=== PATIENT | male | born 1995 | race Caucasian/White ===

== ENCOUNTER 2020-07-07 16:53 | Inpatient (IN) | payer OTHER ==
[2020-07-07 19:54] VITALS: BMI 26.9
[2020-07-07] MEDS ORDERED: METHOCARBAMOL 500 MG TABLET PO PRN (20:14)
[2020-07-07] MEDS ORDERED: BISMUTH SUBSALICYLATE 524 MG/30 ML UD PO PRN (20:14)
[2020-07-07] MEDS ORDERED: ACETAMINOPHEN 325 MG TABLET (FP) PO PRN ×2 (20:14)
[2020-07-07] MEDS ORDERED: MENTHOL/PHENOL 1 EACH UD MM PRN (20:14)
[2020-07-07] MEDS ORDERED: MAGNESIUM HYDROX 2400MG/30ML ORAL SUSPENSION 30 ML CUP PO PRN (20:14)
[2020-07-07] MEDS ORDERED: MAG HYDROX/AL HYDROX/SIMETH 30 ML UNIT-DOSE CUP PO PRN (20:14)
[2020-07-07] MEDS ORDERED: MAGNESIUM CITRATE 300 ML BOTTLE PO PRN (20:14)
[2020-07-07] MEDS ORDERED: chlordiazePOXIDE HCL 25 MG CAPSULE PO PRN (20:15)
[2020-07-07] MEDS: chlordiazePOXIDE HCL 25 MG CAPSULE PO SCH (22:29)
[2020-07-07] MEDS: THIAMINE HCL 100 MG TABLET (FP) PO SCH (22:30)
[2020-07-07] MEDS: MELATONIN 5 MG TABLETS PO SCH (22:30)
[2020-07-08] MEDS: chlordiazePOXIDE HCL 25 MG CAPSULE PO SCH ×2 (05:15→10:04)
[2020-07-08] MEDS: PRENATAL VITAMINS W/ FOLIC ACID TABLET (FP) PO SCH (10:04)
[2020-07-08 10:14] LABS: HEMATOCRIT 42.7 % (35.4-49); HEMOGLOBIN 14.6 GM/dL (11.7-16.9); MCH 32.8 pg (25.7-33.7); MCHC 34.3 g/dl (32.0-35.9); MEAN CELL VOLUME 95.6 fl (80-96); MEAN PLT VOLUME 9.5 fl (7.5-11.1); PLATELET COUNT 267 K/MM3 (134-434); RBC 4.47 M/mm3 (4.00-5.60); RDW 14.7 % (11.9-15.9); WHITE BLOOD COUNT 5.2 K/mm3 (4.0-10.0)
[2020-07-08 10:28] LABS: POTASSIUM 4.2 mmol/L (3.5-5.1)
[2020-07-08 10:34] LABS: CALCIUM 10.2 mg/dL (8.5-10.1)
[2020-07-08 10:35] LABS: ALBUMIN 3.7 g/dl (3.4-5.0); BLOOD UREA NITROGEN 14.6 mg/dL (7-18)
[2020-07-08 10:38] LABS: CREATININE 1.1 mg/dL (0.55-1.3)
[2020-07-08 10:39] LABS: BILIRUBIN,TOTAL 0.3 mg/dL (0.2-1); TOT PROT 7.3 g/dl (6.4-8.2)
[2020-07-08] MEDS ORDERED: LORazepam 1 MG TABLET PO PRN (11:55)
[2020-07-08] MEDS: amLODIPine BESYLATE 5 MG TABLET (FP) PO SCH (13:36)
[2020-07-08] MEDS: MYCOPHENOLATE MOFETIL 500 MG TABLET PO SCH ×2 (13:36→22:08)
[2020-07-08] MEDS: TACROLIMUS ANHYDROUS 1 MG CAPSULE PO SCH ×2 (13:37→22:08)
[2020-07-08] MEDS: LORazepam 2 MG TABLET PO SCH ×2 (17:24→22:08)
[2020-07-08] MEDS ORDERED: MASKS NR ONE (20:40)
[2020-07-08] MEDS: THIAMINE HCL 100 MG TABLET (FP) PO SCH (22:08)
[2020-07-08] MEDS: MELATONIN 5 MG TABLETS PO SCH (22:08)
[2020-07-09] MEDS ORDERED: chlordiazePOXIDE HCL 25 MG CAPSULE PO SCH (05:00)
[2020-07-09] MEDS: LORazepam 2 MG TABLET PO SCH ×4 (05:44→22:04)
[2020-07-09] MEDS: amLODIPine BESYLATE 5 MG TABLET (FP) PO SCH (10:11)
[2020-07-09] MEDS: MYCOPHENOLATE MOFETIL 500 MG TABLET PO SCH ×2 (10:11→22:05)
[2020-07-09] MEDS: PRENATAL VITAMINS W/ FOLIC ACID TABLET (FP) PO SCH (10:11)
[2020-07-09] MEDS: TACROLIMUS ANHYDROUS 1 MG CAPSULE PO SCH ×2 (10:12→22:05)
[2020-07-09] MEDS: MELATONIN 5 MG TABLETS PO SCH (22:05)
[2020-07-09] MEDS: THIAMINE HCL 100 MG TABLET (FP) PO SCH (22:05)
[2020-07-10] MEDS ORDERED: chlordiazePOXIDE HCL 10 MG CAPSULE PO PRN
[2020-07-10] MEDS ORDERED: chlordiazePOXIDE HCL 10 MG CAPSULE PO SCH (05:00)
[2020-07-10] MEDS: LORazepam 1 MG TABLET PO SCH ×4 (05:19→22:12)
[2020-07-10] MEDS: MYCOPHENOLATE MOFETIL 500 MG TABLET PO SCH ×2 (10:06→22:13)
[2020-07-10] MEDS: PRENATAL VITAMINS W/ FOLIC ACID TABLET (FP) PO SCH (10:07)
[2020-07-10] MEDS: amLODIPine BESYLATE 5 MG TABLET (FP) PO SCH (10:07)
[2020-07-10] MEDS: TACROLIMUS ANHYDROUS 1 MG CAPSULE PO SCH ×2 (10:07→22:13)
[2020-07-10 10:40] LABS: SGOT/AST 107 U/L (15-37); SGPT/ALT 68 U/L (13-61)
[2020-07-10] MEDS ORDERED: hydrOXYzine PAMOATE 25 MG CAPSULE (FP) PO PRN (11:00)
[2020-07-10] MEDS: MELATONIN 5 MG TABLETS PO SCH (22:13)
[2020-07-10] MEDS: THIAMINE HCL 100 MG TABLET (FP) PO SCH (22:13)
[2020-07-11] MEDS ORDERED: LORazepam 0.5 MG TABLET PO PRN
[2020-07-11] MEDS ORDERED: chlordiazePOXIDE HCL 10 MG CAPSULE PO SCH (05:00)
[2020-07-11] MEDS: LORazepam 0.5 MG TABLET PO SCH ×4 (05:19→22:25)
[2020-07-11 09:03] VITALS: TEMP 96.8
[2020-07-11] MEDS: MYCOPHENOLATE MOFETIL 500 MG TABLET PO SCH ×2 (10:07→22:23)
[2020-07-11] MEDS: PRENATAL VITAMINS W/ FOLIC ACID TABLET (FP) PO SCH (10:07)
[2020-07-11] MEDS: TACROLIMUS ANHYDROUS 1 MG CAPSULE PO SCH ×2 (10:07→22:23)
[2020-07-11] MEDS: amLODIPine BESYLATE 5 MG TABLET (FP) PO SCH (10:07)
[2020-07-11] MEDS: MELATONIN 5 MG TABLETS PO SCH (22:23)
[2020-07-11] MEDS: THIAMINE HCL 100 MG TABLET (FP) PO SCH (22:23)
[2020-07-12] MEDS ORDERED: LORazepam 0.5 MG TABLET PO ONE (05:00)
[2020-07-12] MEDS ORDERED: chlordiazePOXIDE HCL 10 MG CAPSULE PO ONE (05:00)
[2020-07-12 08:07] VITALS: BP 130/83; PULSE 107
== END 2020-07-12 09:15 | disposition home or self-care (01) | DRG 775 ==
LOC: YASAS 16:53 → Y3N 19:55
PROVIDERS: ADMIT Allergy & Immunology; ATTEND Allergy & Immunology
PROC: HZ2ZZZZ Detoxification Services for Substance Abuse Treatment (ICD-10-PCS; principal; 2020-07-07)
DX: F10.230 Alcohol dependence with withdrawal, uncomplicated (principal); F10.220 Alcohol dependence with intoxication, uncomplicated; Z94.0 Kidney transplant status; R74.01 Elevation of levels of liver transaminase levels; Z91.013 Allergy to seafood
CPT/HCPCS: 36415; 80053; 84450; 84460; 85027; 86780; C9803; J7517; U0003; U0005

== ENCOUNTER 2020-11-10 09:19 | Inpatient (IN) | payer OTHER ==
[2020-11-10 10:14] VITALS: BMI 26.8
[2020-11-10] MEDS ORDERED: MENTHOL/PHENOL 1 EACH UD MM PRN (10:27)
[2020-11-10] MEDS ORDERED: MAG HYDROX/AL HYDROX/SIMETH 30 ML UNIT-DOSE CUP PO PRN (10:27)
[2020-11-10] MEDS ORDERED: ACETAMINOPHEN 325 MG TABLET (FP) PO PRN (10:27)
[2020-11-10] MEDS ORDERED: MAGNESIUM CITRATE 300 ML BOTTLE PO PRN (10:27)
[2020-11-10] MEDS ORDERED: ONDANSETRON *ODT* 4 MG TABLET SL PRN (10:27)
[2020-11-10] MEDS ORDERED: BISMUTH SUBSALICYLATE 524 MG/30 ML PO PRN (10:27)
[2020-11-10] MEDS ORDERED: MAGNESIUM HYDROX 2400MG/30ML ORAL SUSPENSION 30 ML CUP PO PRN (10:27)
[2020-11-10] MEDS ORDERED: IBUPROFEN 400 MG TABLET (FP) PO PRN (10:27)
[2020-11-10] MEDS: diazePAM 5 MG TABLET PO SCH ×2 (10:59→17:35)
[2020-11-10] MEDS: PRENATAL VITAMINS W/ FOLIC ACID TABLET (FP) PO SCH (11:54)
[2020-11-10] MEDS: diazePAM 5 MG TABLET PO PRN (12:34)
[2020-11-10 14:52] LABS: HEMATOCRIT 47.9 % (35.4-49); HEMOGLOBIN 16.6 GM/dL (11.7-16.9); MCH 33.5 pg (25.7-33.7); MCHC 34.7 g/dl (32.0-35.9); MEAN CELL VOLUME 96.6 fl (80-96); MEAN PLT VOLUME 9.7 fl (7.5-11.1); PLATELET COUNT 341 10^3/uL (134-434); RBC 4.96 M/mm3 (4.00-5.60); RDW 14.5 % (11.9-15.9); WHITE BLOOD COUNT 11.5 K/mm3 (4.0-10.0)
[2020-11-10 15:19] LABS: ALBUMIN 3.7 g/dl (3.4-5.0); CALCIUM 10.3 mg/dL (8.5-10.1)
[2020-11-10 15:20] LABS: BLOOD UREA NITROGEN 9.7 mg/dL (7-18)
[2020-11-10 15:23] LABS: CREATININE 1.5 mg/dL (0.55-1.3)
[2020-11-10 15:24] LABS: BILIRUBIN,TOTAL 1.6 mg/dL (0.2-1)
[2020-11-10 15:25] LABS: TOT PROT 7.8 g/dl (6.4-8.2)
[2020-11-10] MEDS: hydrOXYzine PAMOATE 25 MG CAPSULE (FP) PO SCH ×2 (15:47→17:40)
[2020-11-10] MEDS: METHOCARBAMOL 500 MG TABLET PO PRN (17:36)
[2020-11-10] MEDS: ACETAMINOPHEN 325 MG TABLET (FP) PO PRN (17:37)
[2020-11-10] MEDS ORDERED: METOPROLOL TARTRATE 50 MG TABLET (FP) PO ONE (18:44)
[2020-11-11] MEDS: MYCOPHENOLATE MOFETIL 500 MG TABLET PO SCH ×3 (00:51→21:48)
[2020-11-11] MEDS: hydrOXYzine PAMOATE 25 MG CAPSULE (FP) PO SCH ×2 (00:52→05:25)
[2020-11-11] MEDS: THIAMINE HCL 100 MG TABLET (FP) PO SCH ×2 (00:52→21:50)
[2020-11-11] MEDS: TACROLIMUS ANHYDROUS 1 MG CAPSULE PO SCH ×3 (00:52→21:49)
[2020-11-11] MEDS: MELATONIN 5 MG TABLETS PO SCH ×2 (00:52→21:48)
[2020-11-11] MEDS: diazePAM 5 MG TABLET PO SCH ×5 (00:53→23:22)
[2020-11-11] MEDS: diazePAM 5 MG TABLET PO PRN (02:38)
[2020-11-11] MEDS ORDERED: ALBUTEROL SO4 HFA INHALER IH PRN (09:27)
[2020-11-11] MEDS ORDERED: hydrOXYzine PAMOATE 25 MG CAPSULE (FP) PO PRN (09:27)
[2020-11-11] MEDS: amLODIPine BESYLATE 5 MG TABLET (FP) PO SCH (10:21)
[2020-11-11] MEDS: PRENATAL VITAMINS W/ FOLIC ACID TABLET (FP) PO SCH (10:21)
[2020-11-12] MEDS: ACETAMINOPHEN 325 MG TABLET (FP) PO PRN (02:47)
[2020-11-12] MEDS: diazePAM 5 MG TABLET PO SCH ×3 (05:48→22:31)
[2020-11-12] MEDS: MYCOPHENOLATE MOFETIL 500 MG TABLET PO SCH ×2 (10:12→22:23)
[2020-11-12] MEDS: diazePAM 5 MG TABLET PO PRN (10:12)
[2020-11-12] MEDS: amLODIPine BESYLATE 5 MG TABLET (FP) PO SCH (10:12)
[2020-11-12] MEDS: METHOCARBAMOL 500 MG TABLET PO PRN ×2 (10:12→22:29)
[2020-11-12] MEDS: PRENATAL VITAMINS W/ FOLIC ACID TABLET (FP) PO SCH (10:12)
[2020-11-12] MEDS: TACROLIMUS ANHYDROUS 1 MG CAPSULE PO SCH ×2 (10:12→22:24)
[2020-11-12] MEDS: MELATONIN 5 MG TABLETS PO SCH (22:23)
[2020-11-12] MEDS: THIAMINE HCL 100 MG TABLET (FP) PO SCH (22:24)
[2020-11-13] MEDS: diazePAM 5 MG TABLET PO SCH ×2 (07:02→18:01)
[2020-11-13] MEDS: MYCOPHENOLATE MOFETIL 500 MG TABLET PO SCH ×2 (10:15→23:09)
[2020-11-13] MEDS: TACROLIMUS ANHYDROUS 1 MG CAPSULE PO SCH ×2 (10:15→23:09)
[2020-11-13] MEDS: PRENATAL VITAMINS W/ FOLIC ACID TABLET (FP) PO SCH (10:16)
[2020-11-13] MEDS: diazePAM 5 MG TABLET PO PRN (10:16)
[2020-11-13] MEDS: amLODIPine BESYLATE 5 MG TABLET (FP) PO SCH (10:16)
[2020-11-13] MEDS: ACETAMINOPHEN 325 MG TABLET (FP) PO PRN (18:03)
[2020-11-13] MEDS: THIAMINE HCL 100 MG TABLET (FP) PO SCH (23:12)
[2020-11-13] MEDS: MELATONIN 5 MG TABLETS PO SCH (23:12)
[2020-11-14] MEDS: ACETAMINOPHEN 325 MG TABLET (FP) PO PRN (05:51)
[2020-11-14] MEDS ORDERED: diazePAM 5 MG TABLET PO ONE (06:00)
[2020-11-14] MEDS: MYCOPHENOLATE MOFETIL 500 MG TABLET PO SCH (10:25)
[2020-11-14] MEDS: amLODIPine BESYLATE 5 MG TABLET (FP) PO SCH (10:25)
[2020-11-14] MEDS: TACROLIMUS ANHYDROUS 1 MG CAPSULE PO SCH (10:25)
[2020-11-14] MEDS: PRENATAL VITAMINS W/ FOLIC ACID TABLET (FP) PO SCH (10:25)
[2020-11-14 11:04] VITALS: BP 129/78; PULSE 110; TEMP 97.8
== END 2020-11-14 12:20 | disposition home or self-care (01) | DRG 775 ==
LOC: YASAS 09:19 → Y3N 10:52
PROVIDERS: ADMIT Allergy & Immunology; ATTEND Allergy & Immunology
PROC: HZ2ZZZZ Detoxification Services for Substance Abuse Treatment (ICD-10-PCS; principal; 2020-11-10)
DX: F10.230 Alcohol dependence with withdrawal, uncomplicated (principal); F10.220 Alcohol dependence with intoxication, uncomplicated; F19.24 Other psychoactive substance dependence with psychoactive substance-induced mood disorder; I12.9 Hypertensive chronic kidney disease with stage 1 through stage 4 chronic kidney disease, or unspecified chronic kidney disease; N18.9 Chronic kidney disease, unspecified; Z94.0 Kidney transplant status; R00.0 Tachycardia, unspecified; S42.022A Displaced fracture of shaft of left clavicle, initial encounter for closed fracture; Y04.0XXA Assault by unarmed brawl or fight, initial encounter; Y93.9 Activity, unspecified; Y92.9 Unspecified place or not applicable; Z91.013 Allergy to seafood; Z56.0 Unemployment, unspecified
CPT/HCPCS: 36415; 80053; 85027; 86780; C9803; J7517; Q0162; U0003; U0005

== ENCOUNTER 2020-11-10 19:52 | Emergency (ER) | payer OTHER ==
[2020-11-10 20:03] VITALS: TEMP 98.4; BMI 28.3
[2020-11-10 23:46] VITALS: BP 120/70; PULSE 75
== END 2020-11-11 01:44 | disposition home or self-care (01) ==
LOC: JER 19:52
DX: S42.022A Displaced fracture of shaft of left clavicle, initial encounter for closed fracture (principal)
CPT/HCPCS: 71046-TC-FY; 73000-TC-LT-FY; 73030-TC-LT-FY; 99285-25